=== PATIENT | male | born 1965 | race Caucasian/White ===

== ENCOUNTER 2020-05-16 08:44 | Inpatient (IN) | payer OTHER ==
[~2020-05-16] VITALS: Ht 165.1 cm; Wt 75.3 kg
[2020-05-16 09:05] LABS: BASOPHILS % 0.9 % (0.0-2.0); EOSINOPHILS % 2.6 % (0.0-5.0); HEMATOCRIT. 42.9 % (42.0-52.0); HEMOGLOBIN. 14.9 g/dL (14.0-18.0); LYMPHOCYTES % 38.4 % (20.0-50.0); MEAN CORPUSCULAR HEMOGLOBIN 30.4 pg (28.0-32.0); MEAN CORPUSCULAR VOLUME 87.5 fL (80.0-94.0); MEAN PLATELET VOLUME 8.2 fl (7.4-10.4); NEUTROPHILS % 50.1 % (40.0-76.0); PLATELET 189 x1000/uL (130-400); RED CELL DISTRIBUTION WIDTH 14.1 % (11.6-14.6)
[2020-05-16 09:13] LABS: CHLORIDE 108 mEq/L (98-107)
[2020-05-16 09:14] LABS: PROTHROMBIN TIME 10.3 sec (9.6-11.0)
[2020-05-16 09:18] LABS: ETHANOL BLOOD < 10 mg/dL
[2020-05-16 09:20] LABS: LDL CHOLESTEROL 134 mg/dL (5-100)
[2020-05-16 10:12] LABS: CLARITY URINE CLEAR (CLEAR); COLOR URINE YELLOW (YELLOW); KETONES URINE NEGATIVE (NEGATIVE); LEUKOCYTE ESTERASE URINE NEGATIVE (NEGATIVE); NITRITE URINE NEGATIVE (NEGATIVE); OCCULT BLOOD URINE NEGATIVE (NEGATIVE); PROTEIN URINE NEGATIVE (NEGATIVE); SPECIFIC GRAVITY URINE 1.023 (1.005-1.030); UROBILINOGEN URINE 0.2 E.U./dL (0.2-1.0)
[2020-05-16 10:24] LABS: *AMPHETAMINES SCREEN URINE NEGATIVE (NEGATIVE); *BARBITURATES SCREEN URINE NEGATIVE (NEGATIVE); *BENZODIAZEPINES SCREEN URINE NEGATIVE (NEGATIVE); *COCAINE SCREEN URINE NEGATIVE (NEGATIVE); CANNABINOID URINE SCREEN NEGATIVE (NEGATIVE); METHADONE URINE SCREEN NEGATIVE (NEGATIVE); OPIATES URINE SCREEN NEGATIVE (NEGATIVE); PHENCYCLIDINE URINE SCREEN NEGATIVE (NEGATIVE)
[2020-05-16] MEDS ORDERED: GADOTERATE MEGLUMINE 5 MMOL/10 ML VIAL IV ONE (10:27)
[2020-05-16] MEDS ORDERED: ASPIRIN 325MG EC TABLET PO ONE (12:00)
[2020-05-16] MEDS ORDERED: CLONIDINE 0.1MG TABLET PO PRN (14:30)
[2020-05-16] MEDS ORDERED: NITROGLYCERIN 0.4MG TABLET SL SL PRN (14:30)
[2020-05-16] MEDS ORDERED: GUAIFENESIN 200MG/10ML SUGAR FREE UDC PO PRN (14:30)
[2020-05-16] MEDS ORDERED: ZOLPIDEM TARTRATE 5MG TABLET PO PRN (14:30)
[2020-05-16] MEDS ORDERED: DOCUSATE SODIUM 100MG CAPSULE PO PRN (14:30)
[2020-05-16] MEDS ORDERED: IPRATROPIUM/ALBUTEROL 0.5-3(2.5)MG/3ML NEB NEB PRN (14:30)
[2020-05-16] MEDS ORDERED: ACETAMINOPHEN 325MG TABLET PO PRN ×2 (14:30)
[2020-05-16] MEDS ORDERED: ONDANSETRON HCL 4MG/2ML INJ IV PRN (14:30)
[2020-05-16] MEDS ORDERED: MAGNESIUM/ALUMINUM HYDROXIDE/SIMETHICONE 30ML UDC PO PRN (14:30)
[2020-05-16 22:30] VITALS: BP 164/83
[2020-05-16 22:32] VITALS: BP 164/83
[2020-05-16 22:45] VITALS: BP 146/80
[2020-05-16] MEDS: ATORVASTATIN CALCIUM 10MG TABLET PO SCH (22:55)
[2020-05-16] MEDS: FAMOTIDINE 20MG TABLET PO SCH (22:55)
[2020-05-16] MEDS: ASCORBIC ACID 500 MG TABLET PO SCH (22:55)
[2020-05-16] MEDS: METOPROLOL TARTRATE 25MG TABLET PO SCH (22:56)
[2020-05-16 23:00] VITALS: BP 143/85
[2020-05-16 23:25] LABS: CREATINE KINASE 88 IU/L (39-308)
[2020-05-16 23:26] LABS: CREATINE KINASE MB FRACTION < 1.0 ng/mL (0.5-3.6)
[2020-05-17] VITALS (44 sets, daily range): BP systolic 97–151; BP diastolic 54–95
[2020-05-17 05:09] LABS: CREATINE KINASE 74 IU/L (39-308)
[2020-05-17 05:10] LABS: CREATINE KINASE MB FRACTION < 1.0 ng/mL (0.5-3.6)
[2020-05-17] MEDS: ASCORBIC ACID 500 MG TABLET PO SCH ×2 (08:45→20:12)
[2020-05-17] MEDS: METOPROLOL TARTRATE 25MG TABLET PO SCH ×2 (08:45→20:12)
[2020-05-17] MEDS: FAMOTIDINE 20MG TABLET PO SCH ×2 (08:45→20:12)
[2020-05-17] MEDS ORDERED: ZINC SULFATE 220 MG ( 50 ) CAPSULE PO SCH (09:00)
[2020-05-17] MEDS: ATORVASTATIN CALCIUM 10MG TABLET PO SCH (20:11)
[2020-05-20] MEDS ORDERED: INFLUENZA VACCINE 05/PF 0.5 ML VIAL IM ONE (12:00)
== END 2020-05-17 21:45 | disposition short-term general hospital (02) | DRG 64 ==
LOC: ER 09:14 → EDBEDREQSVC 11:30 → EDBEDREQ 11:30 → EDBEDREQTM 11:30 → EDBEDREQ 13:51 → MICUSO 14:09 → EDBEDREQSVC 14:13 → EDBEDREQTM 14:13 → ENRESERV 19:52
PROVIDERS: ADMIT Internal Medicine; ATTEND Internal Medicine
DX: I62.9 Nontraumatic intracranial hemorrhage, unspecified (principal); G92 Toxic encephalopathy; G81.91 Hemiplegia, unspecified affecting right dominant side; E78.00 Pure hypercholesterolemia, unspecified; E83.51 Hypocalcemia; I10 Essential (primary) hypertension
CPT/HCPCS: 36415; 70544; 70553; 71045; 80053; 80061; 80305; 80320; 81003; 82550; 82553; 82962; 83036; 83721; 84484; 85025; 93005; 93306; 93880; 93970; 99291; A9577; G0480